=== PATIENT | male | born 1995 | race African-American/Black ===

== ENCOUNTER 2023-07-20 21:55 | Emergency (ER) | payer OTHER, SELFPAY ==
[2023-07-20 21:56] VITALS: BP 148/113; PULSE 106; RESP 18; TEMP 36.6; O2SAT 100; BMI 32.6
[2023-07-20 22:53] VITALS: O2SAT 99
[2023-07-20 22:54] VITALS: BP 146/92; PULSE 72
--- NOTE | 2023-07-20 23:00 | RAD_ITS ---
EXAM: XR CHEST, 1 VIEW CLINICAL INDICATION: chest pain TECHNIQUE: Frontal view of the chest. COMPARISON: No relevant prior studies available. FINDINGS: LUNGS AND PLEURAL SPACES: Unremarkable. No consolidation or edema. No pneumothorax. No effusion. HEART: Unremarkable. Cardiac silhouette not enlarged. MEDIASTINUM: Central airways and mediastinal contour are unremarkable. BONES/JOINTS: Unremarkable. No acute fracture. SOFT TISSUES: Unremarkable. RAD/Chest 1 View (Portable) IMPRESSION: No radiographic evidence of acute cardiopulmonary disease. Electronically Signed: Zachery Mora MD at 23:38 EST ,
[2023-07-20 23:14] LABS: Absolute Lymphocyte Count 2.39 X10^3/uL (0.83-4.51); Absolute Neutrophil Count 5.2 X10^3/uL (2.0-7.7); Basophil# 0.07 X10^3/uL; Basophil% 0.8 % (0-1); Eosinophil# 0.21 X10^3/uL; Eosinophils% 2.4 % (0-5); Hematocrit 43.9 % (40-54); Hemoglobin 15.2 g/dL (13.0-16.5); Lymphocyte # 2.39 X10^3/ul (0.83-4.51); Lymphocyte % 27.9 % (19-41); Mean Corp Hgb Conc 34.6 g/dL (32-36); Mean Corpuscular Hgb 29.9 pg (27.0-32.0); Mean Corpuscular Volume 86.4 fL (80-94); Mean Platelet Vol. 9.9 fl (6.2-12.0); Monocyte# 0.73 X10^3/uL; Monocyte% 8.5 % (0-10); NRBC Flagged by Analyzer 0 % (0-5); Neutrophil # 5.15 X10^3/uL (2.7-7.7); Neutrophil % 60.1 % (47-70); Platelet Count 322 K/mm3 (150-450); RBC Distribution Width CV 12.2 % (11.6-14.6); RBC Distribution Width SD 38.7 fl (35.1-43.9); Red Blood Count 5.08 M/mm3 (4.6-6.2); White Blood Count 8.6 K/mm3 (4.4-11.0)
--- NOTE | 2023-07-20 23:19 | ED.VIS.CHEST ---
HPI History of Present Illness Chief Complaint: Chest Pain Informant: patient Narrative Narrative: Patient states that for the past 3 days he is felt like his chest is compressed. It is nonpleuritic and diffuse chest without radiation. It makes him feel little short of breath at times he has felt a little lightheaded but without palpitations, racing heartbeat, or skips. No syncope. He states it has been episodic, with episodes varying in length. Today it has been present for the past 6 hours, and still there but relatively mild. He is not out of breath right now. He denies any history of DVT or PE or symptoms of a DVT at this time, nor is he had any recent immobilization, long travel, hospitalization, or surgery. He is healthy. Does not use any IV drugs. He states and trying to problem solve this himself, he remembers drinking some carbonated beverage and then forcing himself to belch and remembers that it helped some. And lying on his right side at nighttime he has noticed that seems to make it worse but lying prone is better. He denies exertional symptoms. He has tried no medications. [facility] Medical History Seasonal allergies Home Medications pantoprazole 40 mg tablet,delayed release 40 mg PO DAILY #14 tabs 07/21/23 [Rx Last Taken Unknown] Allergy/AdvReac Type Severity Reaction Status Date / Time No Known Allergies Allergy Verified 07/20/23 21:56 Social History Smoking Status: Never smoker alcohol intake: never ROS ROS ED Constitutional Constitutional ED: Denies chills or fever(s) Eyes Eyes: Denies change in vision or diplopia ENT ENT ED: Denies rhinorrhea or sore throat Cardiovascular Cardiovascular: Reports chest pain and lightheadedness; Denies palpitations, radiating jaw, neck or arm pain or syncope Respiratory/Chest Respiratory/Chest: Reports dyspnea; Denies cough Gastrointestinal Gastrointestinal: Denies abdominal pain, diarrhea, nausea or vomiting Genitourinary Genitourinary ED: Denies dysuria or hematuria Musculoskeletal Musculoskeletal: Denies back pain or neck pain Integumentary Denies abscess or rash Neurologic Neurologic: Denies headache(s), paresthesias or weakness Psychiatric Psychiatric: Denies anxiety or suicidal thoughts EXAM Physical Exam Const Vital Signs: 07/20/23 21:56 07/20/23 22:53 07/20/23 22:54 Temperature 98 F Temperature Source Temporal Pulse Rate 106 H 72 Respiratory Rate 18 Blood Pressure 148/113 H 146/92 H Blood Pressure Mean 124 110 Pulse Ox 100 99 Oxygen Delivery Method Room Air Room Air Positive well nourished and well developed General Appearance ED: well developed and NAD HEENT Reports moist mucous membranes normocephalic and atraumatic Eyes PERRL and EOMs intact bilaterally Neck full ROM and supple Chest Wall inspection of chest normal and palpation of chest normal Resp normal respiratory effort and clear to auscultation bilaterally Cardio regular rate, regular rhythm and no murmurs Rate: Negative for tachycardic GI non-tender and non-distended Auscultation: normoactive bowel sounds Palpation: soft Back/Spine no CVA tenderness General Back: other FROM Extremity normal to inspection General Extremety ED: Negative for edema, pulses abnormal or tenderness General Extremity: Negative for edema or pulses abnormal Neuro oriented x3, CN's II-XII intact bilaterally and no sensory deficits noted Sensorium / Orientation: awake and alert Motor Exam: strength 5/5 throughout Skin no rashes or lesions noted and no wounds Heart Score History: Slightly/Non-Suspicious ECG: Normal Age: </= 45 years Risk Factors: No Risk Factors Troponin: </= Normal Limit Score: 0 MDM MDM MDM Narrative Medical decision making narrative: Differential here includes GI etiologies in addition to pericarditis although this is not a classic history for that, PE although his PERC score is 0 ruling that out, pneumonia although he does not have a cough, and musculoskeletal etiologies although he does not have an obvious reason for that. His EKG is normal, chest x-ray 1 view on my interpretation is normal radiology in agreement, the rest of his labs are normal including troponin of 27 after having discomfort for 5 or 6 straight hours. Therefore I do not think we need to do a second measurement tonight. I did give him a GI cocktail and he felt like that made the pain go away. Therefore at this time I think it is low risk chest discomfort and he is stable to follow-up as an outpatient, I will prescribe him a 2-week course of Protonix and given a dose here he is comfortable with that plan. His last doctor was a combat control so he was referred to the next doctor on the unassigned list. Lab Data Attestation: I reviewed the patient's lab results. Labs: Laboratory Results - last 24 hr 07/20/23 23:06 WBC 8.6 RBC 5.08 Hgb 15.2 Hct 43.9 MCV 86.4 MCH 29.9 MCHC 34.6 RDW Std Deviation 38.7 RDW Coeff of Cadence 12.2 Plt Count 322 MPV 9.9 Immature Gran % (Auto) 0.300 Neut % (Auto) 60.1 Lymph % (Auto) 27.9 [place] % (Auto) 8.5 Eos % (Auto) 2.4 Baso % (Auto) 0.8 Absolute Neuts (auto) 5.2 Absolute Lymphs (auto) 2.39 Nucleated RBC % 0 Sodium 137 Potassium 3.6 Chloride 107 Carbon Dioxide 23.0 Anion Gap 7 BUN 15 Creatinine 1.30 Estim Creat Clear Calc 100.57 Est GFR (MDRD) Af Amer 86 Est GFR (MDRD) Non-Af 71 BUN/Creatinine Ratio 11.5 Glucose 116 H Calcium 9.6 Troponin I High Sens 27 Radiography Diagnostic Testing: Clinical Impression(s) from Imaging Studies Chest X-Ray 07/20/23 23:00 IMPRESSION: No radiographic evidence of acute cardiopulmonary disease. Electronically Signed: Zachery Mora MD at 23:38 EST , Rhythm Strip Rhythm Strip: Sinus Rhythm Rate: 75 Ectopy: None EKG Initial EKG: Attestation: I personally reviewed and interpreted this EKG as follows: Interpretation: Sinus Rhythm and No Acute Injury Pattern Comments: nml EKG Prior EKG tracings: not available for review Prior: No Prior Discharge Plan Triage Chief Complaint: Chest Pain ED Provider: Billy Germain Dx/Rx/DC Orders Clinical Impression: Chest pain due to GERD Instructions: ED GERD (Adult) Prescriptions: New pantoprazole 40 mg tablet,delayed release (DR/EC) 40 mg PO DAILY Qty: 14 0RF Primary Care Provider: Care Physician,No Primary Referrals: Fast,Kaylee, DO [Med Staff - [facility]] - 1 Week if not improving Disposition Disposition: Home, Self Care
--- OUTSIDE RECORDS SUMMARY | 2023-07-20 23:31 | XMS RPT_ITS | CCD ---
Author Name Unknown Address [address] [place] [id number] Organization [facility] Allergies Allergy Classification Reported Allergen(s) Allergy Type Date of Onset Reaction(s) Facility (1 source) Seasonal allergy; Translations: [SEASONAL ALLERGIES] Propensity to adverse reactions (disorder) 0 [facility] Repository Results Test Name Value Interpretation Reference Range Facil ity Encounters Encounter Date Encounter Type Care Provider Facility Start: 04-30-2023 End: 04-30-2023 ambulatory Facility:[facility] Payers Date Payer Category Payer Private Health Insurance [id number] Progress note 04-30-2023 Note Date & Type Note Facility 04-30-2023 Note HNO ID: [id number] Author: Morris Giang APRN.CERTIFIED ADAPTIVE PHYSICAL EDUCATOR Service: ? Author Type: Nurse Practitioner Type: Progress Notes Filed: 04/30/2023 12:40 PM Note Text: Subjective HPI HPI Hal Sims is a 27 year old male who presents today for CC of st, h/a. This started 2 days ago. Has tried otc medication for relief. Symptoms are worsened by nothing. .Patient presents with: Sore Throat: BLAIR x 2 days PAST MEDICAL HISTORY Diagnosis Date Seasonal allergies 08/16/2011 PAST SURGICAL HISTORY Procedure Laterality Date NONE ALLERGIES Seasonal Allergies MEDICATIONS triamcinolone acetonide 0.1 % cream Apply 1 application to affected area three times daily. Apply to affected area. loratadine (CLARITIN) 10 mg tablet Take 1 tablet by mouth as needed for Cold/Allergy Symptoms. FAMILY HISTORY Problem Relation Age of Onset Hypertension Maternal Uncle Diabetes Maternal Aunt Diabetes Paternal Grandfather Social History Tobacco Use Smoking status: Never Smokeless tobacco: Never Vaping Use Vaping Use: Some days Review of Systems Constitutional: Negative for fever. HENT: Positive for congestion and sore throat. Negative for ear pain and nosebleeds. Respiratory: Negative for cough, shortness of breath and wheezing. Musculoskeletal: Negative for neck pain. Objective Blood pressure 120/82, pulse 86, temperature 36.8 ?C (98.3 ?F), resp. rate 21, weight 102.8 kg (226 lb 9.6 oz), SpO2 99 %. Physical Exam Constitutional: General: He is not in acute distress. Appearance: He is not toxic-appearing or diaphoretic. HENT: Head: Normocephalic and atraumatic. Mouth/Throat: Lips: [place]. Mouth: Mucous membranes are moist. Pharynx: Posterior oropharyngeal erythema present. Tonsils: Tonsillar exudate present. 2+ on the right. 2+ on the left. Cardiovascular: Rate and Rhythm: Normal rate and regular rhythm. Heart sounds: Normal heart sounds, S1 normal and S2 normal. Pulmonary: Effort: Pulmonary effort is normal. Breath sounds: Normal breath sounds. Abdominal: General: Bowel sounds are normal. Palpations: Abdomen is soft. There is no hepatomegaly or splenomegaly. Tenderness: There is no abdominal tenderness. Lymphadenopathy: Cervical: No cervical adenopathy. Right cervical: No superficial cervical adenopathy. Left cervical: No superficial cervical adenopathy. Neurological: Mental Status: He is alert and oriented to person, place, and time. Gait: Gait is intact. ASSESSMENT/PLAN: 1. Sore throat - ICD9: 462, ICD10: J02.9 - suspect viral - Group A strep molecular testing negative - Discussed supportive care treatment with fluids, rest and analgesia. - Contagious dz precautions discussed- including considered contagious until on antibiotics for 24 hours - STREP A MOLECULAR (POC) Morris Giang APRN.[facility] Summary Purpose Family History No Family History Records Found Advance Directives No Advanced Directives Records Found Additional Source Comments (unrecognized sect ion and content) No Status Records Found INFORMATION SOURCE (unrecogn ized section and content) FOR RECORDS PERTAINING TO PATIENTS WHO ARE OR HAVE BEEN ENROLLED IN A CHEMICAL DEPENDENCY/SUBSTANCEABUSE PROGRAM, SOME INFORMATION MAY BE OMITTED. This clinical summary was aggregated from multiple sources. Caution should be exercised in using it in the provision of clinical care. This summary normalizes information from multiple sources, and as a consequence, information in this document may materially change the coding, format and clinical context of patient data. In addition, data may be omitted in some cases. CLINICAL DECISIONS SHOULD BE BASED ON THE PRIMARY CLINICAL RECORDS. [facility]. provides no warranty or guarantee of the accuracy or completeness of information in this document.
[2023-07-20] MEDS: Mag Hydrox/Al Hydrox/Simeth 30 ML UDC PO (23:33)
[2023-07-20 23:35] LABS: Anion Gap 7 (5-15); BUN 15 mg/dL (7-18); BUN/Creat Ratio 11.5 RATIO (10-20); Calcium,Total 9.6 mg/dL (8.5-10.1); Chloride 107 mmol/L (98-107); EST Glomerular Filtration Rate 71 mL/min (>60); Est Glom Filt Rate - Afr Amer 86 mL/min (>60); Estimated Creatinine Clearance 100.57 ml/min; Glucose 116 mg/dL (74-106); Potassium 3.6 mmol/L (3.5-5.1); Sodium Level 137 mmol/L (136-145); Troponin-I HS (w/2H Reflex) 27 pg/mL (3.0-78.0)
[2023-07-21 01:09] LABS: Reflex Troponin-HS? (from REC) Y
[2023-07-21] MEDS: Pantoprazole Sodium 40 MG Tablet PO (01:21)
[2023-07-21 01:22] VITALS: RESP 18
== END 2023-07-21 01:23 | disposition home or self-care (01) ==
PROVIDERS: Emergency Provider Emergency Medicine; Visit Provider Emergency Medicine
DX: K21.9 Gastro-esophageal reflux disease without esophagitis (principal); R07.89 Other chest pain
CPT/HCPCS: 71045; 80048; 84484; 85025; 93005; 99284; A4216

== ENCOUNTER → 2024-10-19 | Outpatient (CLI) | payer BC, SELFPAY ==
--- NOTE | 2024-10-19 07:55 | RAD_ITS ---
EXAM: Double-contrast upper GI series and single and double contrast esophagram: CLINICAL HISTORY: Dysphagia. COMPARISON: None. TECHNIQUE: Double-contrast upper GI series and single and double contrast esophagram. Fluoroscopy time: 145 seconds. Estimated dose: 79.6 mGy. FINDINGS: No area of esophageal stenosis is seen. A widely patent esophagogastric junction is noted. Normal-appearing esophageal mucosa is noted. No esophageal motility abnormality is seen. Evaluation of the stomach is somewhat limited by suboptimal coating, but no gastric abnormality is seen. Normal appearance of the duodenum is noted. During the time of this examination, gastroesophageal reflux was not elicited. Satisfactory passage of the 13 mm barium tablet into the stomach was noted. RAD/Upper GI w/BA Swallow IMPRESSION: Negative double contrast upper GI series and single and double contrast esophag linh Reading Location: [place] [address]
== END | disposition home or self-care (01) ==
LOC: RAD 07:48
DX: R13.10 Dysphagia, unspecified (principal)
CPT/HCPCS: 74246

== ENCOUNTER → 2024-11-09 | Outpatient (CLI) | payer BC, SELFPAY ==
--- NOTE | 2024-11-09 13:47 | ST.MBS ---
Modified Barium Swallow Patient Information Study Date: 11/09/24 Study Time: 12:50 Direct Billable Minutes: 98 Total Minutes procedure & reportin Diagnosis: Dysphagia R13.10 Referring Physician: Leslie Michelle Reason for Referral: The patient has been having swallowing difficulty for a few months. He began work up for dysphagia w/ ENT, who found no abnormalities per patient report. He was referred to GI and began on omeprazole for GERD symptoms, but was recently switched to Voquezna, which he feels has possibly helped his globus sensation. He reports difficulty initiating the swallow at times, globus sensation, occ sensation of food becoming stuck. He reported concern for 1 choking episode on a soft taco that cleared w/ a deep inhale through the nose. He denies coughing w/ food or drink. Double contrast UGI with esophagram was performed on 10/19/2024 was unremarkable without hold-up of barium tablet. He was then referred for this MBSS to further assess dysphagia. Of note, he reports a weight loss of 60lbs in the past five months. Medical History: PMH: High blood pressure, Generalized headaches, Back problem, Seasonal allergies. Current Diet Ordered: Regular textures / Thin liquids Mental Status: WNL Respiratory Status: Oxygenating on Room Air Penetration-Aspiration Scale Penetration-Aspiration Scale: OBJECTIVE ASSESSMENT OF SWALLOW FUNCTION (QUANTITATIVE ? PER TRIAL): PENETRATION / ASPIRATION SCALE (SMITH): 1 = does not enter airway 2 = enters airway/above vocal folds/ejected 3 = enters airway/above vocal folds/not ejected 4 = enters airway/contacts vocal folds/ejected 5 = enters airway/contacts vocal folds/not ejected 6 = enters airway/below vocal folds/ejected 7 = enters airway/below vocal folds/not ejected despite effort 8 = enters airway/below vocal folds/no effort VIDEOFLOROSCOPIC SCALE SCORE (SMITH): Grade I = aspiration of material that has penetrated into the laryngeal vestibule, intact cough reflex Grade II = aspiration < 10 % of the bolus, intact cough reflex Grade III = aspiration of < 10 % of the bolus, reduced cough reflex or aspiration of > 10 % of the bolus, intact cough reflex Grade IV = aspiration of > 10 % of the bolus, reduced cough reflex Penetration-Aspiration Scale Score Thin Liquid via teaspoon: Result: 1= does not enter airway Thin Liquid via teaspoon Trial 2: Result: 1= does not enter airway Thin Liquid via sequential sips: cup: Result: 1= does not enter airway Comment: Esophageal screen - Complete clearance. [place] Thick Liquid via sequential sips: cup: Result: 1= does not enter airway Pudding via teaspoon: Result: 1= does not enter airway Comment: Esophageal screen - Complete clearance. 1/2 Cookie: Result: 1= does not enter airway Comment: Esophageal screen - Retention in the middle esophagus. Thin Liquid via single sip: straw: Result: 1= does not enter airway Comment: Esophageal screen - Liquid wash X2 required to clear a majority of cookie retention from the previous trial. Oral Phase Labial Seal: No Labial Escape Tongue Control During Bolus Hold: Escape to lateral buccal cavity/floor of mouth Bolus Preparation/Mastication: Slow prolonged chewing/mashing with complete recollection Bolus Transport/Lingual Motion: Brisk tongue motion Oral Residue: Majority of bolus remaining (Piecemeal deglutition of pudding and cookie) Pharyngeal Phase Initiation of Pharyngeal Swallow: Bolus head in valleculae Soft Palate Elevation: Trace column of contrast/air between soft palate and pharyngeal wall Laryngeal Elevation: Comp. Superior move thyroid cart w/comp. apprx arytenoid cart-epig pet Anterior Hyoid Excursion: Complete anterior movement Epiglottic Movement: Complete inversion Laryngeal Vestibule Closure at Height of Swallow: Complete; no air/contrast in laryngeal vestibule Pharyngeal Stripping Wave: Present - diminished Pharyngoesophageal Segment Opening: Complete distension and complete duration; no obstruction of flow Tongue Base Retraction: Trace column of contrast between tongue base & post. pharyngeal wall Pharyngeal Residue: Trace residue within or on pharyngeal structures Esophageal Phase Esophageal Clearance: Esophageal retention Diagnosis/Impression Diagnosis: Esophageal dysphagia R13.14; Mild oral dysphagia R13.11 Impression: The oral phase is marked by... -Slowed, but thorough mastication. -Significant piecemeal deglutition. He would only swallow very small amounts of the pudding bolus at a time until cued to load a larger portion of the bolus on his tongue and attempt to swallow all at once. He reported he was not fearful to swallow the pudding, but that he felt like he needed to get the bolus in the right position prior to swallowing. The esophageal phase is marked by... -Retention of barium coated cookie in the middle esophagus, which mostly cleared w/ two liquid washes. Recommendations Diet: Regular Textures and Thin Liquids Comment: STOP meal if increased s/s of reflux or sensation of retention despite use of strategies listed below and resume meal at a later time. Compensatory Strategies: Small Bites, Small Sips, Slow Rate, Alternate bites/solids and sips/liquids (Take a sip after every 1-2 bites), Sitting upright and Remain sitting upright for 30 minutes after PO intake Recommend Repeat Modified Barium Swallow: No Need for Skilled Speech Therapy Services: No Comment: A single verbal cue was required to position pudding on his tongue to swallow a larger amount at once. Pt verbalized good understanding of recommended strategies above. Recommended Referrals: GI Consult (Continue to follow w/ GI for management of dysphagia. If continued weight loss, would consider coater consult.) Education Completed: 1. Described result of evaluation. Status Active ST Patient: Active Contact Information [facility] Speech Therapy:: Naina Pena M.A. [facility]-EMERGENCY MANAGEMENT COORDINATOR? Speech-Language Pathologist?? [facility] [address] [place] [address]? [email or web address]?? [phone]
== END | disposition home or self-care (01) ==
LOC: RAD 12:46
PROVIDERS: Referring Provider Nurse Practitioner Acute Care; Visit Provider Nurse Practitioner Acute Care
DX: R13.10 Dysphagia, unspecified (principal)
CPT/HCPCS: 74230; 92611

== ENCOUNTER 2025-02-01 08:07 | Day surgery (SDC) | payer BC, SELFPAY ==
[2025-02-01] VITALS (9 sets, daily range): BP systolic 104–130; BP diastolic 69–85; PULSE 56–95; RESP 16; TEMP 36.4–37.1; O2SAT 98–100; BMI 28.6
[2025-02-01] MEDS: Lactated Ringers 1,000 ML 15 ML IV (08:34)
--- NOTE | 2025-02-01 08:37 | PCM.HP.STD ---
HPI - General General Date of Admission: 02/01/25 Date of Service: 02/01/25 Chief Complaint: dysphagia HPI Narrative HAL AGUAYO, is a 29 M who presents with Chief Complaint: trouble swallowing Details: HAL AGUAYO, is a 29 M who presents to the office today for OV 29-year-old male presents for follow-up with trouble swallowing he was initially seen in the office on 10/05/2024 with complaints of difficulty initiating swallow, globus sensation, and dysphagia with liquids and solids. He was asked to continue omeprazole 40 mg daily and proceed with MBS and esophagram. Double contrast UGI with esophagram was performed on 10/19/2024 was unremarkable without hold-up of barium tablet. He is continuing to experience symptoms and reports previously scheduled MBS was canceled by the department. He will reschedule MBS and follow-up with me in the office 1 week post to review findings. I have asked him in the interim to discontinue omeprazole and trial Voquezna 20mg daily, samples were provided. Note: [employer] speech recognition snow fence erector software was used to create portions of this document. Sound-alike and misspelled words, as well as other snow fence erector errors may be contained in the documentation. Patient Instructions: Discontinue Omeprazole Start Voquezna 20mg daily (samples provided) If no improvement in 2 weeks on Voquezna, discontinue and resume Omeprazole and await MBS Follow-up in office 1 week post MBS If you do well on Voquezna, will send RX to [facility] and provide more samples while awaiting shipment MBS - no signs of aspiration Esophageal screen - Retention in the middle esophagus. Esophageal screen - Liquid wash X2 required to clear a majority of cookie retention from the previous trial. Tongue Control During Bolus Hold: Escape to lateral buccal cavity/floor of mouth Bolus Preparation/Mastication: Slow prolonged chewing/mashing with complete recollection Bolus Transport/Lingual Motion: Brisk tongue motion Oral Residue: Majority of bolus remaining (Piecemeal deglutition of pudding and cookie) The oral phase is marked by... -Slowed, but thorough mastication. -Significant piecemeal deglutition. He would only swallow very small amounts of the pudding bolus at a time until cued to load a larger portion of the bolus on his tongue and attempt to swallow all at once. He reported he was not fearful to swallow the pudding, but that he felt like he needed to get the bolus in the right position prior to swallowing. The esophageal phase is marked by... -Retention of barium coated cookie in the middle esophagus, which mostly cleared w/ two liquid washes. STOP meal if increased s/s of reflux or sensation of retention despite use of strategies listed below and resume meal at a later time. Compensatory Strategies: Small Bites, Small Sips, Slow Rate, Alternate bites/solids and sips/liquids (Take a sip after every 1-2 bites), Sitting upright and Remain sitting upright for 30 minutes after PO intake A single verbal cue was required to position pudding on his tongue to swallow a larger amount at once. Pt verbalized good understanding of recommended strategies above. Recommended Referrals: GI Consult (Continue to follow w/ GI for management of dysphagia. If continued weight loss, would consider cutting and boning supervisor consult.) The patient is a 29-year-old male presenting with dysphagia. The swallowing difficulty was first noted approximately a month ago, leading to a modified barium swallow and esophagogram, which revealed retention in the middle of the esophagus without aspiration. The patient reported needing to position larger food portions correctly to swallow them without fear, although some oral residual was noted. The patient was previously on omeprazole, which was discontinued in favor of Voquezna, resulting in improved symptoms and weight gain from 179 to 190 pounds. The patient has been off Viquesna for about a week and a half to two weeks, with no significant regression of symptoms noted. There is a suspicion of eosinophilic esophagitis, a condition characterized by inflammation due to eosinophils, which may cause scarring and stricturing of the esophagus. The patient is a young male, a demographic more commonly affected by this condition. - Gastrointestinal: Reports difficulty swallowing, needing to position food correctly for swallowing. Denies fear of swallowing. Attestation: Documentation on this patient encounter was supported using ambient scribe technology/ voice AI technology. The patient consented to recording for the purpose of documenting the encounter. Provider reviewed content of the generated note prior to signature. [facility] Medical History Alcohol use Marijuana use Difficulty swallowing Gastric reflux Vapes nicotine containing substance High blood pressure Generalized headaches Back problem Seasonal allergies Home Medications ?Medication ?Instructions ?Recorded ?Last Taken ?Type vonoprazan 10 mg tablet (Voquezna) 10 mg PO QDAY 12/06/24 01/31/25 History Allergy/AdvReac Type Severity Reaction Status Date / Time No Known Allergies Allergy Verified 02/01/25 08:33 Family History Other Diabetes Thyroid disorder Social History Smoking Status: Current every day smoker tobacco type: smokeless tobacco alcohol intake: current alcohol intake frequency: a few times a week Alcohol type: beer and hard liquor substance use type: marijuana what type of physical activity do you participate in: walking and weight training ROS Constitutional Constitutional: Denies fatigue, fever(s), poor appetite, weight gain or weight loss Gastrointestinal Gastrointestinal: Denies belching, bloating, change in bowel habits, change in stool character, chewing difficulty, coffee ground emesis, constipation, cramping, diarrhea, dyspepsia, dysphagia, early satiety, excessive flatus, fecal incontinence, heartburn, hematemesis, hematochezia, hemorrhoids, loose stools, melena, nausea, odynophagia, rectal bleeding, tenesmus, vomiting or weight changes Vital Signs Vital Signs Vital Signs: 02/01/25 08:34 02/01/25 08:34 Temperature 98.8 F Temperature Source Temporal Pulse Rate 76 Respiratory Rate 16 Respiratory Pattern Normal Blood Pressure 130/85 H Blood Pressure Mean 100 Blood Pressure Source Monitor Blood Pressure Position Semi-Fowlers Blood Pressure Location Left Arm Pulse Ox 100 Oxygen Delivery Method Room Air Weight Weight: 194 lb 0.108 oz Body Mass Index (BMI) 28.6 Physical Exam Const alert, oriented x3, no apparent distress and healthy appearing General Appearance: cooperative GI normal to inspection, nondistended, normoactive bowel sounds, soft to palpation, non-tender and non-distended Percussion: normal to percussion Rectal Exam: deferred Assessment & Plan Assessment/Plan (1) GERD (gastroesophageal reflux disease): (2) Dysphagia: PLAN: Assessment and Plan Assessment and Plan (1) Dysphagia: Status: Acute Plan: The plan includes scheduling an endoscopy to evaluate the esophagus and obtain a biopsy to rule out eosinophilic esophagitis. The patient will remain off Viquesna until after the procedure to ensure accurate biopsy results. Post-procedure, Voquezna will be resumed to manage symptoms effectively. Plan 29-year-old male with a history of dysphagia presents with ongoing swallowing difficulties. MBS and esophagogram indicated retention in the middle of the esophagus, suggesting possible esophageal dysmotility or eosinophilic esophagitis. The patient experienced mild symptom improvement with [id number] QD x1 month, which was discontinued to allow for accurate endoscopic evaluation. Eosinophilic esophagitis is suspected due to the patient's demographic and symptomatology, necessitating an endoscopic biopsy for confirmation. Eosinophilic esophagitis is suspected, and an endoscopic biopsy is planned to confirm the diagnosis. The patient is advised to remain off Viquesna to prevent false-negative biopsy results. Following the procedure, Voquezna will be restarted to manage potential eosinophilic esophagitis symptoms. Patient Instructions: - Remain off Voquezna until after the endoscopy to ensure accurate biopsy results. - Prepare for the endoscopy by fasting after midnight before the procedure. - Arrange for a concrete truck driver post-procedure due to sedation. - Resume Voquezna 20mg QD post-procedure as directed. (samples provided)
--- NOTE | 2025-02-01 08:42 | PRE.ANES_ITS ---
ASA Classification* ASA Classification ASA Classification: 2 Assessment & Plan Anesthesia* Anesthesia Assessment Anesthesia Assessment: Discussed sedation and/or anesthesia options, risks, benefits, and alternatives with patient/parents/legal guardian/POA. Questions invited. The patient/parents/legal guardian/POA seems to understand and agrees to proceed with anesthesia plan. Reviewed the physical assessment, medical history, allergy history and patient home medications list prior to surgery/procedure/anesthetic and documented any changes. Performed airway and anesthesia risk assessments. Anesthesia Type Anesthesia Type: MAC History Source History Obtained from:: Patient and Chart Anesthesia Focused Assessment* Temperature: 98.8 F Pulse Rate: 76 Blood Pressure: 130/85 Respiratory Rate: 16 Pulse Ox: 100 Oxygen Delivery Method: Room Air Airway Assessment Mouth opens: >3 cm Mallampati Score: I Teeth Condition: Intact Neck Range of motion (ROM): Full ROM Labs Anesthesia Preop lab: CBC WBC 8.6 K/mm3 (4.4-11.0) 07/20/23 23:07/20/23 RBC 5.08 M/mm3 (4.6-6.2) 07/20/23 23:07/20/23 Hgb 15.2 g/dL (13.0-16.5) 07/20/23 23:07/20/23 Hct 43.9 % (40-54) 07/20/23 23:07/20/23 Plt Count 322 K/mm3 (150-450) 07/20/23 23:06 07/20/23 CHEMISTRY Potassium 3.6 mmol/L (3.5-5.1) 07/20/23 23:07/20/23 Sodium 137 mmol/L (136-145) 07/20/23 23:07/20/23 BUN 15 mg/dL (7-18) 07/20/23 23:07/20/23 Creatinine 1.30 mg/dL (0.70-1.30) 07/20/23 23:07/20/23 Glucose 116 mg/dL (74-106) H 07/20/23 23:07/20/23 COAG Pre-Assessment Diagnosis/Proposed Procedure Planned Operative Procedure(s): EGD Anesthesia History Anesthesia History - oyster unloader: Anesthesia History - oyster unloader Hx Hospitalization No 01/30/25 17:22 Any Problems With Anesthesia No 01/30/25 17:22 Cholinesterase deficiency No 01/30/25 17:22 You/Your Family Experience No 01/30/25 17:22 fever (hyperthermia) with Relationship Recent Exposure to Contagious No 02/01/25 08:34 Disease Does patient have nerve No 01/30/25 17:22 stimulator Patient instructed to have device shut off --Does patient have Pacemaker No 02/01/25 08:34 or ICD? When Was Last Pacemaker Check QUESTION #4 FULL TEXT: You/Your Family Experience fever (hyperthermia) with Anesthesia Last Oral Intake Last Oral intake: Last Oral Intake NPO since 00:00 02/01/25 08:34 Meds taken in AM with sips of water? Meds patient instructed to take am of surgery PONV PONV - oyster unloader: PONV - oyster unloader Female No 01/30/25 17:22 HX of Motion Sickness No 01/30/25 17:22 HX of N/V After Surgery No 01/30/25 17:22 Non-Smoker No 01/30/25 17:22 Duration of Surgery greater No 01/30/25 17:22 than 60 minutes Number of Risk Factors PONV Score Height & Weight Height & Weight: Anesthesia: Height & Weight Height 5 ft 9 in 02/01/25 08:34 Weight: 88 kg 02/01/25 08:34 Body Mass Index (BMI) 28.6 02/01/25 08:34 Respiratory Assessment Respiratory Assessment - oyster unloader: Respiratory Tract Infection Hx - oyster unloader Hx Respiratory Tract Infection No 01/30/25 17:22 STOP Sleep Apnea STOP Sleep Apnea - oyster unloader: STOP Sleep Apnea - oyster unloader Hx Hypertension No 01/30/25 17:22 Hx Sleep Apnea No 01/30/25 17:22 CPAP BIPAP Do you snore loudly (louder No 01/30/25 17:22 than talking or can be heard Do you often feel tired/ No 01/30/25 17:22 fatigued/ sleepy during daytime? Has anyone observed you stop No 01/30/25 17:22 breathing during sleep? STOP Results Negative 01/30/25 17:22 QUESTION #5 FULL TEXT : Do you snore loudly (louder than talking or can be heard through closed doors)? Tobacco Use History Tobacco Use History - oyster unloader: Tobacco Use History - oyster unloader Tobacco Use Smoking Status Current every day smoker 01/30/25 17:22 Hx Tobacco Use Yes 01/30/25 17:22 Years Smoking Packs Smoked per Day Smoking Cessation Date was Yes - quit smoking within 15 01/30/25 17:22 within the last 15 years years Hx Smoking Cessation Date Hx Smoking Cessation Counseling Any additional information?: Yes Smoking Status: Current every day smoker (Patient did not smoke today.) Hematologic Medial History Hematologic Hx - oyster unloader: Hematologic Medical Hx - credit risk review officer Hx of Blood Transfusion No 01/30/25 17:22 Hx of Transfusion in last 3 No 01/30/25 17:22 Months Date of Last Transfusion (if within last 3 months) Ever experience any problems No 01/30/25 17:22 with transfusion(s)? Specify any problems Hx of Preganancy in last 3 N/A 01/30/25 17:22 Months Nurse Filling Out Transfusion MGRIFFITH 01/30/25 17:22 & Questions: Date: 01/30/25 01/30/25 17:22 Time: 01/30/25 17:22 Patient unable to answer at this time (ie. confused, unrespo /Reproduction History /Reproductive History - oyster unloader: /Reproductive Hx- oyster unloader Hx Now No 01/30/25 17:22 Gestational Age (in weeks): EDC: Hx Hx Para Hx Section SAB No 01/30/25 17:22 Active Medications Active Medications: Current Medications Generic Name Dose Route Start Last Admin Trade Name Freq PRN Reason Stop Dose Admin Lactated Ringer's 1,000 mls @ 15 mls/hr 02/01/25 08:30 02/01/25 08:34 IV 15 mls/hr .Q48H LAKSHMI Administration PFSH Medical History Alcohol use Marijuana use Difficulty swallowing Gastric reflux Vapes nicotine containing substance High blood pressure Generalized headaches Back problem Seasonal allergies Home Medications ?Medication ?Instructions ?Recorded ?Last Taken ?Type vonoprazan 10 mg tablet (Voquezna) 10 mg PO QDAY 12/0601/31/25 History Allergy/AdvReac Type Severity Reaction Status Date / Time No Known Allergies Allergy Verified 02/01/25 08:33 Family History Other Diabetes Thyroid disorder Social History Smoking Status: Current every day smoker tobacco type: smokeless tobacco alcohol intake: current alcohol intake frequency: a few times a week Alcohol type: beer and hard liquor substance use type: marijuana what type of physical activity do you participate in: walking and weight training Review of Systems (Anesthesia) ROS Narrative System reviewed and no additional complaints, except as documented.
--- NOTE | 2025-02-01 09:15 | EGD_PTH ---
PATIENT: HAL AGUAYO LOC: EN U#:[id number] AGE/SX: 29/M ROOM: RE02/01/[address]: Dr. Faisal Goldberg DO : 1995 BED: DIS: 02/01/2025 SPEC #: [id number] RECD: 02/01/25 11:00 STATUS: JULIO CÉSAR REJluia #: [id number] STEPHEN: 02/01/25 09:[address]: Faisal Goldberg DEPT: SURGICAL PATHOLOGY RECD BY: Yasmany Campoverde ENTERED: 02/01/25 13:08 SP TYPE: EGD BIOPSY OT DR: Rita Primary Care Phys Tissues: A - Gastric mucous membrane B - Duodenum, NOS C - Esophagus, NOS Procedures: Immunohistochemical Stains Surgery Specimen Level IV HEADER OPERATION: EGD with biopsy and dilation PRE-OP DIAGNOSIS: GERD, dysphagia TISSUE SUBMITTED: A- Gastric cardia biopsy, B- Duodenum biopsy, C- Random esophagus biopsy MICROSCOPIC DIAGNOSIS A. Stomach, cardia, biopsies: - Oxyntic (fundic) mucosa with slight chronic inflammation - An immunohistochemical stain for Helicobacter pylori is negative B. Small intestine, duodenum: - Irregularly blunted villi with an increased mixed lymphoplasmacytic and eosinophilic inflammatory cell infiltrate in the lamina propria (See Comment) C. Esophagus, random: * Benign squamous epithelium without active inflammation * One piece of cardiac mucosa with goblet cell metaplasia, suggesting possible Lopez's esophagus COMMENT The histopathological features in Part B are etiologically nonspecific and the differential diagnosis includes sensitivity to gluten and non-gluten proteins, small intestinal bacterial overgrowth, stasis related changes, infection, protein calorie malnutrition, tropical sprue, and medication injury. If celiac disease is a clinical concern, additional studies, such as tTG-IgA, are recommended. MICROSCOPIC DESCRIPTION Slides are reviewed. All matched controls reacted appropriately. These tests were developed and their performance characteristics determined by [facility]. They may not have been cleared or approved by the U.S. Food and Drug Administration. The FDA has determined that such clearance or approval is not necessary. The above immunohistochemical/dual JEAN markers are interpretated by the Pathologist. GROSS DESCRIPTION A. Received in fixative is one container labeled with the patient's name and designated Gastric cardia biopsy. The specimen consists of four irregular fragments of light pisano tissue that measure 0.2 to 0.7 cm. The specimen is totally submitted in one cassette. B. Received in fixative is one container labeled with the patient's name and designated Duodenum biopsy. The specimen consists of three irregular fragments of light pisano tissue that measure 0.2 to 0.4 cm. The specimen is totally submitted in one cassette. C. Received in fixative is one container labeled with the patient's name and designated Random esophagus biopsy. The specimen consists of four irregular fragments of light pisano tissue that measure 0.1 to 0.6 cm. The specimen is totally submitted in one cassette. IA 02/01/2025 CPT:15039v9,73506
--- NOTE | 2025-02-01 09:38 | PCM.POST.ANE ---
Anesthesia: Postop Eval I Current Vital Signs Temperature: 97.8 F Pulse Rate: 78 Blood Pressure: 108/69 Respiratory Rate: 16 Pulse Ox: 98 Oxygen Delivery Method: Room Air Assessment Airway patent: Yes Spontaneous unlabored respirations: Yes Mental status: Awake and Calm nausea: No Vomiting: No Anesthesia Complication: No Fluid Hydration Crystalloid volume administer (ml): 400 Total IV fluid infused: 400 Progress Note Anesthesia document: Postop Eval 1 completed: Yes
--- NOTE | 2025-02-01 09:44 | OP.PROVAT_ITS ---
02/01/2025 No Primary Care Physician Re : Upper GI endoscopy procedure for Lenny Sims Dear Care Physician This procedure was performed on Saturday, February 01, 2025. My impressions and recommendations are as follows: Impressions : - Abnormal esophageal motility. Dilated. - Chronic gastritis. Biopsied. - Chronic duodenitis. Biopsied. - Biopsies were taken with a cold forceps for evaluation of eosinophilic esophagitis. Recommendations : - Discharge patient to home. - Resume previous diet. - Continue present medications. - Await pathology results. My findings are described in the full procedure note, which is enclosed. If I can be of further assistance, please feel free to contact me at . Sincerely, Faisal Goldberg, 02/01/2025 9:44:04 AM This report has been signed electronically.
--- NOTE | 2025-02-01 09:44 | OP.EGD_ITS ---
Patient Name: Lenny Sims Procedure Date: 02/01/2025 9:11 AM Date of : 1995 Age: 29 Procedure: Upper GI endoscopy Indications: Dysphagia Providers: Faisal Goldberg DO Referring MD: Faisal Goldberg DO Medicines: Monitored Anesthesia Care Patient Profile: This is a 29 year old male. Refer to note in patient chart for documentation of history and physical. Patient has symptoms of acute abdominal distention, dysphagia with both liquids and solids, chronic dyspepsia and chronic nausea. Complications: No immediate complications. Procedure: Pre-Anesthesia Assessment: - Prior to the procedure, a History and Physical was performed, and patient medications and allergies were reviewed. The patient is competent. The risks and benefits of the procedure and the sedation options and risks were discussed with the patient. All questions were answered and informed consent was obtained. Patient identification and proposed procedure were verified by the physician in the pre-procedure area. Mental Status Examination: alert and oriented. Airway Examination: normal oropharyngeal airway and neck mobility. Respiratory Examination: clear to auscultation. CV Examination: normal. Prophylactic Antibiotics: The patient does not require prophylactic antibiotics. Prior Anticoagulants: The patient has taken no anticoagulant or antiplatelet agents except for NSAID medication. ASA Grade Assessment: II - A patient with mild systemic disease. After reviewing the risks and benefits, the patient was deemed in satisfactory condition to undergo the procedure. The anesthesia plan was to use monitored anesthesia care (MAC). Immediately prior to administration of medications, the patient was re-assessed for adequacy to receive sedatives. The heart rate, respiratory rate, oxygen saturations, blood pressure, adequacy of pulmonary ventilation, and response to care were monitored throughout the procedure. The physical status of the patient was re-assessed after the procedure. After obtaining informed consent, the endoscope was passed under direct vision. Throughout the procedure, the patient's blood pressure, pulse, and oxygen saturations were monitored continuously. The Endoscope was introduced through the mouth, and advanced to the third part of the duodenum. Small bowel enteroscopy was deemed necessary. The upper GI endoscopy was accomplished without difficulty. The patient tolerated the procedure well. Scope In: 9:19:03 AM Scope Out: 9:26:10 AM Total Procedure Duration Time 0 hours 7 minutes 7 seconds Findings: Abnormal motility was noted in the esophagus. The cricopharyngeus was abnormal. There are extra peristaltic waves in the esophageal body. The distal esophagus/lower esophageal sphincter is spastic, but gives up passage to the endoscope. Biopsies were obtained from the proximal and distal esophagus with cold forceps for histology of suspected eosinophilic esophagitis. A guidewire was placed and the scope was withdrawn. Dilation was performed with a Savary dilator with no resistance at 60 Fr. The dilation site was examined and showed moderate improvement in luminal narrowing. Estimated blood loss was minimal. Localized mild inflammation characterized by erosions and erythema was found in the cardia and in the gastric fundus. Biopsies were taken with a cold forceps for histology. Verification of patient identification for the specimen was done. Estimated blood loss was minimal. Biopsies were taken with a cold forceps for Helicobacter pylori testing. Verification of patient identification for the specimen was done. Estimated blood loss was minimal. Patchy mild inflammation was found in the entire duodenum. Biopsies were taken with a cold forceps for histology. Verification of patient identification for the specimen was done. Estimated blood loss was minimal. Impression: - Abnormal esophageal motility. Dilated. - Chronic gastritis. Biopsied. - Chronic duodenitis. Biopsied. - Biopsies were taken with a cold forceps for evaluation of eosinophilic esophagitis. Recommendation: - Discharge patient to home. - Resume previous diet. - Continue present medications. - Await pathology results. Procedure Code(s): --- Professional --- 24838, Esophagogastroduodenoscopy, flexible, transoral; with insertion of guide wire followed by passage of dilator(s) through esophagus over guide wire 97419, 59,51, Small intestinal endoscopy, enteroscopy beyond second portion of duodenum, not including ileum; with biopsy, single or multiple CPT copyright 2021 [employer]. All rights reserved. The codes documented in this report are preliminary and upon clinic licensed practical nurse review may be revised to meet current compliance requirements. Faisal Goldberg DO 02/01/2025 9:44:04 AM This report has been signed electronically. Number of Addenda: 0 Note Initiated On: 02/01/2025 9:11 AM
--- NOTE | 2025-02-01 10:19 | PCM.POSTANE2 ---
Anesthesia Postop Eval I Sum Postop Eval Completion status Anesthesia document: Postop Eval 1 completed: Yes Anesthesia Postop Eval I Summary Anesthesia Postop Eval I Summary: Anesthesia Postop Eval I: Assessment Summary Airway patent Yes 02/01/25 09:39 [email or web address] Spontaneous unlabored Yes 02/01/25 09:39 [email or web address] respirations Mental status Awake,Calm 02/01/25 09:39 [email or web address] nausea No 02/01/25 09:39 [email or web address] Vomiting No 02/01/25 09:39 [email or web address] Anesthesia Postop Eval I: Fluid Summary Crystalloid volume administer 400 02/01/25 09:39 [email or web address] (ml) Colloids volume administered ( ml) Blood Product volume administered (ml) Total IV fluid infused 400 02/01/25 09:39 [email or web address] Anesthesia Postop Eval I: Summary Notes Anesthesia Complication No 02/01/25 09:39 [email or web address] Anesthesia Complication Comment: Post-operative progress note Anesthesia: Postop Eval II Evaluation Mental status: Awake Pain Level: 0 nausea: No Vomiting: No
== END 2025-02-01 10:25 | disposition home or self-care (01) ==
LOC: EN 08:08 → AC 08:10
PROVIDERS: Referring Provider Internal Medicine Gastroenterology; Visit Provider Internal Medicine Gastroenterology
PROC: 0DJ08ZZ Inspection of Upper Intestinal Tract, Via Natural or Artificial Opening Endoscopic (ICD-10-PCS; CPT 43235; principal; 2025-02-01 09:10)
DX: R13.10 Dysphagia, unspecified (principal); K29.80 Duodenitis without bleeding; Z79.899 Other long term (current) drug therapy; F17.220 Nicotine dependence, chewing tobacco, uncomplicated; K30 Functional dyspepsia; K20.90 Esophagitis, unspecified without bleeding; K29.50 Unspecified chronic gastritis without bleeding
CPT/HCPCS: 43248; 43239; 88305; 88342; C1769; J2405